=== PATIENT | male | born 1965 | race Caucasian/White ===

== ENCOUNTER 2021-06-28 14:28 | Emergency (ER) | payer OTHER ==
[2021-06-28 15:01] LABS: BASOPHIL 0.3 % (0-2); EOSINOPHIL 0.2 % (0-5); HCT 45.2 % (42.0-52.0); HGB 14.6 g/dl (13.2-18.0); LYMPHOCYTE 16.1 % (15-48); MCH 28.4 pg (25.0-31.0); MCHC 32.3 g/dL (32.0-36.0); MCV 87.9 fL (78.0-100.0); MONOCYTE 11.6 % (0-12); MPV 9.7 fL (6.0-9.5); NEUTROPHIL 71.6 % (41-80); NRBC 0; PLT 251 K/uL (150-400); RBC 5.14 M/uL (4.70-6.00); RDW 13.8 % (11.5-14.0); WBC 13.2 K/uL (4.0-10.5)
[2021-06-28 15:22] LABS: ALBUMIN 3.7 g/dL (3.4-5.0); BILIRUBIN - TOTAL 0.8 mg/dL (0.2-1.0); BUN/CREAT RATIO (CALC) 15.6 RATIO; CREATININE 0.77 mg/dL (0.67-1.17); GLOBULIN (CALCULATION) 4.2 g/dL; POTASSIUM 3.9 mmol/L (3.5-5.1); TOTAL PROTEIN 7.9 g/dL (6.4-8.2)
[2021-06-28] MEDS ORDERED: ONDANSETRON ODT4 MG PO (18:41)
[2021-06-28] MEDS ORDERED: NORCO 5-325 TA1 EACH PO ×2 (18:41→18:58)
== END 2021-06-28 19:35 | disposition home or self-care (01) ==
LOC: FER 14:28
PROVIDERS: Emergency Medicine
DX: K85.90 Acute pancreatitis without necrosis or infection, unspecified (principal); I10 Essential (primary) hypertension; I25.2 Old myocardial infarction
CPT/HCPCS: 36415; 71045; 80053; 83690; 84484; 85025; 93005; Q9967

== ENCOUNTER 2021-07-18 14:26 | Emergency (ER) | payer OTHER ==
[~2021-07-18 14:26] MED LIST: NORCO 5-325 TA1 EACH PO; ONDANSETRON ODT4 MG PO
[2021-07-18] MEDS ORDERED: ROBAXIN500 MG PO (16:16)
== END 2021-07-18 16:33 | disposition home or self-care (01) ==
LOC: FER 14:26
DX: S16.1XXA Strain of muscle, fascia and tendon at neck level, initial encounter (principal); I10 Essential (primary) hypertension; Z79.82 Long term (current) use of aspirin; Z79.899 Other long term (current) drug therapy; Z79.02 Long term (current) use of antithrombotics/antiplatelets; X50.0XXA Overexertion from strenuous movement or load, initial encounter; Y93.89 Activity, other specified; Y92.007 Garden or yard of unspecified non-institutional (private) residence as the place of occurrence of the external cause
CPT/HCPCS: 99283

== ENCOUNTER 2021-09-15 09:51 | Emergency (ER) | payer OTHER ==
[~2021-09-15 09:51] MED LIST changes: +ROBAXIN500 MG PO
[2021-09-15] MEDS ORDERED: CELEBREX **OUT100 MG PO (10:26)
== END 2021-09-15 11:03 | disposition home or self-care (01) ==
LOC: FER 09:51
DX: M54.50 Low back pain, unspecified (principal); E11.9 Type 2 diabetes mellitus without complications; Z79.84 Long term (current) use of oral hypoglycemic drugs
CPT/HCPCS: J1885

== ENCOUNTER 2021-11-12 12:06 | Emergency (ER) | payer OTHER ==
[~2021-11-12 12:06] MED LIST changes: +CELEBREX **OUT100 MG PO
[2021-11-12 12:44] LABS: BASOPHIL 0.9 % (0-2); EOSINOPHIL 0.7 % (0-5); HCT 45.4 % (42.0-52.0); HGB 14.7 g/dl (13.2-18.0); LYMPHOCYTE 32.2 % (15-48); MCH 29.3 pg (25.0-31.0); MCHC 32.4 g/dL (32.0-36.0); MCV 90.4 fL (78.0-100.0); MONOCYTE 14.9 % (0-12); NEUTROPHIL 51.2 % (41-80); NRBC 0; PLT 284 K/uL (150-400); RBC 5.02 M/uL (4.70-6.00); WBC 6.7 K/uL (4.0-10.5)
[2021-11-12 13:05] LABS: BUN/CREAT RATIO (CALC) 24.1 RATIO; CREATININE 0.79 mg/dL (0.67-1.17); MAGNESIUM 2.1 mg/dL (1.8-2.4); POTASSIUM 4.5 mmol/L (3.5-5.1)
[2021-11-12 13:10] LABS: BILIRUBIN NEGATIVE (NEGATIVE); BLOOD NEGATIVE Ery/uL (NEGATIVE); CLARITY CLEAR (CLEAR); COLOR YELLOW (YELLOW); GLUCOSE (U) NORMAL (NORMAL); LEUKOCYTES NEGATIVE Leu/uL (NEGATIVE); NITRITE NEGATIVE (NEGATIVE); PROTEIN NEGATIVE (NEGATIVE); SPECIFIC GRAVITY 1.015 (1.001-1.030)
[2021-11-12] MEDS ORDERED: PAXLOVID 300-11 EACH PO (15:13)
== END 2021-11-12 15:45 | disposition home or self-care (01) ==
LOC: FER 12:06
PROVIDERS: Emergency Medicine
DX: U07.1 COVID-19 (principal); R00.1 Bradycardia, unspecified
CPT/HCPCS: 36415; 71045; 71275; 80048; 81003; 83735; 84443; 84484; 85025; 93005; J2060; Q9967; U0002